=== PATIENT | male | born 1980 | race Caucasian/White ===

== ENCOUNTER 2019-02-03 14:28 | Emergency (ER) | payer BC ==
[2019-02-03] MEDS ORDERED: methylPREDNISolone 4 MG Tab 21 Tab/Dosepak PO ONE (14:29)
[2019-02-03] MEDS ORDERED: Albuterol 6.7 GM Inhaler INH ONE ×2 (14:29→18:10)
[2019-02-03 14:59] VITALS: BP 118/82
[2019-02-03] MEDS ORDERED: Albuterol/Ipratropium 3.0-0.5 MG/3 ML Neb Soln NEB ONE (17:38)
--- NOTE | 2019-02-03 17:54 | EDM.PDOC ---
Scribed by Priscila Gibson 02/03/19 2242 for Rebecca Hernández NP ED HPI GENERAL MEDICAL PROBLEM - General Chief Complaint: Respiratory Problem Stated Complaint: RESPIRATORY PROBLEMS Time Seen by Provider: 02/03/19 17:25 Source of Information: Reports: Patient, RN, RN Notes Reviewed History Limitations: Reports: No Limitations - History of Present Illness INITIAL COMMENTS - FREE TEXT/NARRATIVE: Patient presents to ER with history of 2 weeks intermittent wheezing being outdoor with history of pollen allergies. Last night at 0300 with difficulty breathing and significant wheezing. He has a dog at home but he has had it for a long time. He has hardwood floors. No known allergies or asthma. There is a history of allergies in a brother. He has been taking allergy pills of Zyrtec for 1 week. His episodes have decreased but not enough that he is still concerned. Onset: Today Duration: Getting Worse Location: Reports: Chest Severity: Moderate Improves with: Reports: None Worsens with: Reports: None Associated Symptoms: Reports: No Other Symptoms - Related Data Allergies Allergy/AdvReac Type Severity Reaction Status Date / Time hay dust Allergy Sneezing Uncoded 02/03/19 14:59 Home Meds: Home Meds Acetylcysteine [M-Gxkvwe-s-Cysteine] 600 mg PO DAILY 02/03/19 [History] Cetirizine [ZyrTEC] 10 mg PO DAILY 02/03/19 [History] Fluticasone Propionate [Flonase Allergy Relief] 1 squirt NASBOTH ASDIRECTED PRN 02/03/19 [History] Past Medical History HEENT History: Reports: None Cardiovascular History: Reports: None Respiratory History: Reports: None Gastrointestinal History: Reports: None Genitourinary History: Reports: None Musculoskeletal History: Reports: None Neurological History: Reports: Concussion Psychiatric History: Reports: None Endocrine/Metabolic History: Reports: None Hematologic History: Reports: None Immunologic History: Reports: None Oncologic (Cancer) History: Reports: None Dermatologic History: Reports: None - Infectious Disease History Infectious Disease History: Reports: Chicken Pox - Past Surgical History Head Surgeries/Procedures: Reports: None Social & Family History - Tobacco Use Smoking Status *Q: Never Smoker Second Hand Smoke Exposure: No - Caffeine Use Caffeine Use: Reports: Soda - Recreational Drug Use Recreational Drug Use: No ED ROS GENERAL - Review of Systems Review Of Systems: ROS reveals no pertinent complaints other than HPI. ED EXAM, GENERAL - Physical Exam Exam: See Below Exam Limited By: No Limitations General Appearance: Alert, WD/WN, No Apparent Distress Eye Exam: Bilateral Eye: Normal Inspection Ears: Normal External Exam, Normal Canal, Hearing Grossly Normal, Normal TMs Nose: Normal Inspection, Normal Mucosa, No Blood Throat/Mouth: Normal Inspection, Normal Lips, Normal Teeth, Normal Gums, Normal Oropharynx, Normal Voice, No Airway Compromise Head: Atraumatic, Normocephalic Neck: Normal Inspection, Supple, Non-Tender, Full Range of Motion Respiratory/Chest: Wheezing (mild expiratory ) Cardiovascular: Normal Peripheral Pulses, Regular Rate, Rhythm, No Edema, No Gallop, No JVD, No Murmur, No Rub GI/Abdominal: Normal Bowel Sounds, Soft, Non-Tender, No Organomegaly, No Distention, No Abnormal Bruit, No Mass Back Exam: Normal Inspection, Full Range of Motion, NT Extremities: Normal Inspection, Normal Range of Motion, Non-Tender, Normal Capillary Refill, No Pedal Edema Neurological: Alert, Oriented, CN II-XII Intact, Normal Cognition, Normal Gait, Normal Reflexes, No Motor/Sensory Deficits Skin Exam: Warm, Dry, Intact, Normal Color, No Rash Course - Vital Signs Last Recorded V/S: Last Vital Signs Temp 36.6 C 02/03/19 14:55 Pulse 80 02/03/19 14:55 Resp 16 02/03/19 14:55 BP 118/82 02/03/19 14:55 Pulse Ox 97 02/03/19 14:55 - Orders/Labs/Meds Orders: Active Orders 24 hr Category Date Time Status RT Aerosol Therapy [RC] ASDIRECTED Care 02/03/19 17:38 Active Meds: Medications Discontinued Medications Generic Name Dose Route Start Last Admin Trade Name Freq PRN Reason Stop Dose Admin Albuterol/Ipratropium 3 ml 02/03/19 17:38 Duoneb 3.0-0.5 Mg/3 Ml NEB 02/03/19 17:39 ONETIME ONE Departure - Departure Time of Disposition: 17:47 Disposition: Home, Self-Care 01 Preliminary Cause of *Q: Cardiac Arrest Condition: Good Clinical Impression: Acute asthma, Allergy to pollen - Discharge Information *PRESCRIPTION DRUG MONITORING PROGRAM REVIEWED*: Not Applicable *COPY OF PRESCRIPTION DRUG MONITORING REPORT IN PATIENT JIM: Not Applicable Instructions: Asthma, Adult Forms: ED Department Discharge Additional Instructions: Use medrol dose pack; read direction on the pack. Albuterol inhaler 2 puffs q 4 hours as needed. Singular is good for allergy/asthma. Continue mary lou once a day. - My Orders Last 24 Hours: My Active Orders 02/03/19 17:38 RT Aerosol Therapy [RC] ASDIRECTED - Assessment/Plan Last 24 Hours: My Active Orders 02/03/19 17:38 RT Aerosol Therapy [RC] ASDIRECTED I have read and agree with the documentation that has been completed regarding this visit. By signing this record, I attest that the documentation was completed in my physical presence and is an accurate record of the encounter.
[2019-02-03] MEDS ORDERED: methylPREDNISolone 4 MG Tab 21 Tab/Dosepak ONE (18:09)
== END 2019-02-03 18:21 | disposition home or self-care (01) ==
LOC: DL.ED 14:28
DX: J45.901 Unspecified asthma with (acute) exacerbation (principal); Z79.899 Other long term (current) drug therapy; Z91.048 Other nonmedicinal substance allergy status
CPT/HCPCS: 99283-25; A9270-GY; J7620-GY

== ENCOUNTER 2023-10-16 00:44 | Emergency (ER) | payer BC ==
[2023-10-16 00:52] VITALS: BP 139/112; PULSE 84
[2023-10-16] MEDS: Dexamethasone 4 MG/ML SDV IVPUSH ONE (00:54)
[2023-10-16] MEDS: Sodium Chloride 0.9% 10 ML Syringe FLUSH PRN (00:54)
[2023-10-16] MEDS: Albuterol 0.083% 2.5 MG/3 ML Neb Soln NEB ONE (00:55)
[2023-10-16] MEDS: Magnesium Sulfate/Water 2 GM in Premix Bag 1 BAG IV ONE (01:01)
== END 2023-10-16 01:28 | disposition home or self-care (01) ==
LOC: DL.ED 00:44
DX: J45.901 Unspecified asthma with (acute) exacerbation (principal); Z91.048 Other nonmedicinal substance allergy status
CPT/HCPCS: 96365; 96375; 99284; 99284-25; J1100; J3475; J3490; J7613-GY

== ENCOUNTER 2023-10-31 12:45 | Emergency (ER) | payer BC ==
[2023-10-31 13:05] VITALS: BP 151/98; PULSE 66
== END 2023-10-31 15:20 | disposition home or self-care (01) ==
LOC: DL.ED 12:45
DX: S89.91XA Unspecified injury of right lower leg, initial encounter (principal); J45.909 Unspecified asthma, uncomplicated; Z79.899 Other long term (current) drug therapy; Z91.048 Other nonmedicinal substance allergy status; W17.2XXA Fall into hole, initial encounter
CPT/HCPCS: 73562-RT; 73590-RT; 99282; 99283